=== PATIENT | male | born 1965 | race African-American/Black ===

== ENCOUNTER 2022-04-12 11:06 | Emergency (ER) | payer MEDICARE, OTHER ==
[2022-04-12 11:55] LABS: #Eosinphils 0.1 10x3/uL (0.0-0.5); #Monocytes 0.8 10x3/uL (0.0-1.1); #Neutrophils 5.9 10x3/uL (1.5-8.4); %Basophils 0.5 % (0.0-2.0); %Eosinophils 1.3 % (0.0-6.0); %Lymphocytes 16.9 % (18.0-47.0); %Monocytes 9.7 % (0.0-10.0); %Neutrophils 71.1 % (40.0-75.0); Hemoglobin 12.1 g/dL (13.5-17.5); Mean Corpuscular HGB CONC 31.1 g/dL (32.0-36.0); Mean Corpuscular Hemoglobin 28.7 pg (27.0-33.0); Mean Corpuscular Volume 92.4 fl (81.2-95.1); Mean Platelet Volume 11.6 fl (7.4-10.4); Platelet Count 226 10x3/uL (150-450); RBC Distribution Width 15.1 % (11.5-14.5); Red Blood Cell (RBC) Count 4.21 10x6/uL (4.32-5.72); White Blood Cell (WBC) Count 8.4 10x3/uL (3.5-10.5)
[2022-04-12 12:15] LABS: ALT (SGPT) 10 U/L (8-55); AST (SGOT) 24 U/L (5-34); Albumin 4.1 g/dL (3.5-5.0); Alkaline Phosphatase 132 U/L (40-110); Anion Gap 16 mmol/L (10-20); BUN (Urea Nitrogen) 18 mg/dL (8.4-25.7); Bilirubin, Total 0.5 mg/dL (0.2-1.2); Calc. Creatinine Clearance 0 mL/min (70-130); Calcium 9.6 mg/dL (7.8-10.44); Carbon Dioxide 19 mmol/L (22-29); Chloride 104 mmol/L (98-107); Estimated GFR 78; Globulin 4.7 g/dL (2.4-3.5); Glucose 153 mg/dL (70-105); Lipase 46 U/L (8-78); Potassium 4.8 mmol/L (3.5-5.1); Protein, Total 8.8 g/dL (6.0-8.3); Sodium 134 mmol/L (136-145)
[2022-04-12] MEDS ORDERED: Morphine 4 MG/ML VIAL ONE (12:27)
== END 2022-04-12 12:54 | disposition home or self-care (01) ==
LOC: CSHERS 11:06
DX: R07.9 Chest pain, unspecified (principal); I25.10 Atherosclerotic heart disease of native coronary artery without angina pectoris; I50.9 Heart failure, unspecified; E11.9 Type 2 diabetes mellitus without complications; K21.9 Gastro-esophageal reflux disease without esophagitis; F17.220 Nicotine dependence, chewing tobacco, uncomplicated; Z79.899 Other long term (current) drug therapy; Z79.82 Long term (current) use of aspirin; Z79.01 Long term (current) use of anticoagulants
CPT/HCPCS: 71045; 80053; 83690; 84484; 85025; 93005; 96374; J2270

== ENCOUNTER 2022-04-22 00:22 | Emergency (ER) | payer MEDICARE ==
[2022-04-22] MEDS ORDERED: HYDROcodone/Acetaminophen 5/325 mg Tablet ONE (01:14)
[2022-04-22 01:23] LABS: Bilirubin Neg (Negative); Blood, Urine Negative (Negative); Clarity Slightly Cloudy (Clear); Glucose, Urine (Dipstick) Normal (Negative); Ketone, Urine Negative (Negative); Leukocyte Negative (Negative); Nitrite Negative (Negative); Protein, Urine (Dipstick) Negative (Neg-Trace); Specific Gravity, Urine 1.025 (1.002-1.036); Urobilinogen Normal mg/dL (Less than 2)
[2022-04-22 02:10] LABS: #Basophils 0.1 10x3/uL (0.0-0.2); #Eosinphils 0.1 10x3/uL (0.0-0.5); #Neutrophils 5.5 10x3/uL (1.5-8.4); %Basophils 0.8 % (0.0-2.0); %Eosinophils 1.6 % (0.0-6.0); %Lymphocytes 22.6 % (18.0-47.0); %Monocytes 11.7 % (0.0-10.0); %Neutrophils 62.8 % (40.0-75.0); Hemoglobin 11.6 g/dL (13.5-17.5); Mean Corpuscular HGB CONC 32.5 g/dL (32.0-36.0); Mean Corpuscular Hemoglobin 28.9 pg (27.0-33.0); Mean Platelet Volume 11.1 fl (7.4-10.4); Platelet Count 184 10x3/uL (150-450); RBC Distribution Width 14.9 % (11.5-14.5); Red Blood Cell (RBC) Count 4.01 10x6/uL (4.32-5.72); White Blood Cell (WBC) Count 8.7 10x3/uL (3.5-10.5)
[2022-04-22 02:21] LABS: Anion Gap 13 mmol/L (10-20); BUN (Urea Nitrogen) 19 mg/dL (8.4-25.7); Calc. Creatinine Clearance 0 mL/min (70-130); Carbon Dioxide 17 mmol/L (22-29); Chloride 108 mmol/L (98-107); Estimated GFR 86; Potassium 4.3 mmol/L (3.5-5.1); Sodium 134 mmol/L (136-145)
[2022-04-22 02:22] LABS: ALT (SGPT) 11 U/L (8-55); AST (SGOT) 36 U/L (5-34); Albumin 3.9 g/dL (3.5-5.0); Alkaline Phosphatase 136 U/L (40-110); Bilirubin, Total 0.4 mg/dL (0.2-1.2); Calcium 9.4 mg/dL (7.8-10.44); Globulin 4.4 g/dL (2.4-3.5); Glucose 111 mg/dL (70-105); Lipase 40 U/L (8-78); Protein, Total 8.3 g/dL (6.0-8.3)
[2022-04-22] MEDS ORDERED: Morphine 4 MG/ML VIAL ONE ×2 (03:06→04:37)
[2022-04-22] MEDS ORDERED: Iopamidol 300 61% 100 ML VIAL FS ONE (12:49)
== END 2022-04-22 05:19 | disposition home or self-care (01) ==
LOC: CSHERS 00:22
DX: R10.9 Unspecified abdominal pain (principal); R10.814 Left lower quadrant abdominal tenderness; I25.10 Atherosclerotic heart disease of native coronary artery without angina pectoris; I11.0 Hypertensive heart disease with heart failure; I50.9 Heart failure, unspecified; E11.9 Type 2 diabetes mellitus without complications; K21.9 Gastro-esophageal reflux disease without esophagitis; E78.00 Pure hypercholesterolemia, unspecified; J44.9 Chronic obstructive pulmonary disease, unspecified; F17.220 Nicotine dependence, chewing tobacco, uncomplicated; Z79.82 Long term (current) use of aspirin; Z79.01 Long term (current) use of anticoagulants; Z79.899 Other long term (current) drug therapy
CPT/HCPCS: 36415; 74177; 80053; 81003; 83605; 83690; 85025; 96374; 96376; J2270; Q9967

== ENCOUNTER 2022-06-27 20:34 | Emergency (ER) | payer MEDICARE ==
[2022-06-27] MEDS ORDERED: Morphine 4 MG/ML VIAL ONE (21:11)
[2022-06-27] MEDS ORDERED: Morphine 2 MG/ML VIAL ONE (21:12)
[2022-06-27] MEDS ORDERED: Ondansetron ODT 4 MG TAB ONE (21:27)
== END 2022-06-27 22:42 | disposition home or self-care (01) ==
LOC: CSHERS 20:34
DX: R10.13 Epigastric pain (principal); R11.2 Nausea with vomiting, unspecified; E11.9 Type 2 diabetes mellitus without complications; I11.0 Hypertensive heart disease with heart failure; I50.9 Heart failure, unspecified; E78.00 Pure hypercholesterolemia, unspecified; F17.220 Nicotine dependence, chewing tobacco, uncomplicated; Z79.899 Other long term (current) drug therapy
CPT/HCPCS: 93005; 96374; 99284; J2270; Q0162

== ENCOUNTER 2022-09-17 15:14 | Emergency (ER) | payer MEDICARE | END 2022-09-17 16:41 | disposition home or self-care (01) | LOC: CSHERS 15:14 | DX: S30.1XXA Contusion of abdominal wall, initial encounter (principal); R10.11 Right upper quadrant pain; X58.XXXA Exposure to other specified factors, initial encounter | CPT/HCPCS: 74176 ==

== ENCOUNTER 2022-10-06 21:30 | Emergency (ER) | payer MEDICARE, OTHER ==
[~2022-10-06 21:30] MED LIST: Iopamidol 300 61% 100 ML VIAL FS ONE
[2022-10-06] MEDS ORDERED: Ondansetron PF 4 MG/2 ML Vial ONE (22:47)
[2022-10-06] MEDS ORDERED: Morphine 4 MG/ML VIAL ONE (22:47)
[2022-10-06 23:11] LABS: Hemoglobin 9.7 g/dL (13.5-17.5); Mean Corpuscular HGB CONC 31.6 g/dL (32.0-36.0); Mean Corpuscular Hemoglobin 30.9 pg (27.0-33.0); Mean Corpuscular Volume 97.8 fl (81.2-95.1); Mean Platelet Volume 11.4 fl (7.4-10.4); Platelet Count 137 10x3/uL (150-450); RBC Distribution Width 15.1 % (11.5-14.5); Red Blood Cell (RBC) Count 3.14 10x6/uL (4.32-5.72); White Blood Cell (WBC) Count 3.9 10x3/uL (3.5-10.5)
[2022-10-06 23:13] LABS: MDiff Complete? YES
[2022-10-06 23:22] LABS: ALT (SGPT) Less than 6 U/L (8-55); AST (SGOT) 15 U/L (5-34); Albumin 3.8 g/dL (3.5-5.0); Alkaline Phosphatase 91 U/L (40-110); Anion Gap 12 mmol/L (10-20); BUN (Urea Nitrogen) 17 mg/dL (8.4-25.7); Bilirubin, Total 0.7 mg/dL (0.2-1.2); Calc. Creatinine Clearance 0 mL/min (70-130); Calcium 8.9 mg/dL (7.8-10.44); Carbon Dioxide 19 mmol/L (22-29); Chloride 115 mmol/L (98-107); Estimated GFR 74; Globulin 3.2 g/dL (2.4-3.5); Glucose 104 mg/dL (70-105); Lipase 13 U/L (8-78); Potassium 3.2 mmol/L (3.5-5.1); Sodium 143 mmol/L (136-145)
[2022-10-06 23:37] LABS: Eosinophils 1 % (0-10); Lymphocytes 13 % (21-51); Metamyelocyte 1 % (0-0); Monocytes 9 % (0-10); Neutrophil 76 % (42-75)
[2022-10-06 23:38] LABS: Anisocytosis SLIGHT = 6-15 cells (100X) (0-5/hpf); Platelet Morphology Comment Appears Decreased
[2022-10-06 23:58] LABS: Bilirubin Neg (Negative); Blood, Urine Negative (Negative); Clarity Clear (Clear); Glucose, Urine (Dipstick) Normal (Negative); Ketone, Urine Negative (Negative); Leukocyte Negative (Negative); Nitrite Negative (Negative); Protein, Urine (Dipstick) 30 mg/dl (Neg-Trace); Specific Gravity, Urine 1.025 (1.005-1.030); Urobilinogen Normal mg/dL (Less than 2)
[2022-10-07 00:01] LABS: Bacteria/HPF None Seen HPF (None Seen); RBC/HPF 0-3 HPF (0-3); Squamous Epithelial 0-3 HPF (0-3); WBC/HPF 0-3 HPF (0-3)
== END 2022-10-07 00:32 | disposition home or self-care (01) ==
LOC: CSHERS 21:30
DX: R10.32 Left lower quadrant pain (principal); I11.0 Hypertensive heart disease with heart failure; I50.9 Heart failure, unspecified; J44.9 Chronic obstructive pulmonary disease, unspecified
CPT/HCPCS: 74177; 80053; 81003; 81015; 83605; 83690; 85025; 96374; 96375; J2270; J2405; Q9967

== ENCOUNTER 2022-10-10 16:54 | Emergency (ER) | payer MEDICARE, OTHER ==
[2022-10-10 19:00] LABS: Anion Gap 11 mmol/L (10-20); BUN (Urea Nitrogen) 15 mg/dL (8.4-25.7); Calc. Creatinine Clearance 0 mL/min (70-130); Calcium 8.9 mg/dL (7.8-10.44); Carbon Dioxide 21 mmol/L (22-29); Chloride 114 mmol/L (98-107); Estimated GFR 73; Glucose 78 mg/dL (70-105); Potassium 3.5 mmol/L (3.5-5.1); Sodium 142 mmol/L (136-145)
[2022-10-10] MEDS ORDERED: Morphine 4 MG/ML VIAL ONE (20:35)
== END 2022-10-10 20:37 | disposition home or self-care (01) ==
LOC: CSHERS 16:54
DX: M79.605 Pain in left leg (principal); M79.604 Pain in right leg; M71.22 Synovial cyst of popliteal space [Baker], left knee; M71.21 Synovial cyst of popliteal space [Baker], right knee; I11.0 Hypertensive heart disease with heart failure; I50.9 Heart failure, unspecified; J44.9 Chronic obstructive pulmonary disease, unspecified; F17.220 Nicotine dependence, chewing tobacco, uncomplicated; Z79.01 Long term (current) use of anticoagulants
CPT/HCPCS: 36415; 80048; 93970; 96374; J2270

== ENCOUNTER 2022-10-19 16:02 | Emergency (ER) | payer MEDICARE ==
[2022-10-19] MEDS ORDERED: Fentanyl 100 MCG/2 ML VIAL ONE (16:52)
[2022-10-19 17:14] LABS: Bilirubin Neg (Negative); Blood, Urine Negative (Negative); Clarity Clear (Clear); Glucose, Urine (Dipstick) Normal (Negative); Ketone, Urine Negative (Negative); Leukocyte Negative (Negative); Nitrite Negative (Negative); Protein, Urine (Dipstick) 100 mg/dl (Neg-Trace); Specific Gravity, Urine 1.025 (1.005-1.030); Urobilinogen Normal mg/dL (Less than 2)
[2022-10-19 17:21] LABS: RBC/HPF 0-3 HPF (0-3); WBC/HPF 0-3 HPF (0-3)
[2022-10-19 17:22] LABS: Bacteria/HPF Rare-Few HPF (None Seen); Mucous/LPF Rare LPF (<2+); Squamous Epithelial 0-3 HPF (0-3)
[2022-10-19 17:54] LABS: #Eosinphils 0.1 10x3/uL (0.0-0.5); #Monocytes 0.6 10x3/uL (0.0-1.1); #Neutrophils 2.5 10x3/uL (1.5-8.4); %Eosinophils 1.3 % (0.0-6.0); %Lymphocytes 17.6 % (18.0-47.0); %Monocytes 14.5 % (0.0-10.0); %Neutrophils 65.1 % (40.0-75.0); Hemoglobin 10.5 g/dL (13.5-17.5); Mean Corpuscular Hemoglobin 30.5 pg (27.0-33.0); Mean Corpuscular Volume 98.5 fl (81.2-95.1); Mean Platelet Volume 12.1 fl (7.4-10.4); Platelet Count 114 10x3/uL (150-450); RBC Distribution Width 14.6 % (11.5-14.5); Red Blood Cell (RBC) Count 3.44 10x6/uL (4.32-5.72); White Blood Cell (WBC) Count 3.9 10x3/uL (3.5-10.5)
[2022-10-19 18:09] LABS: ALT (SGPT) 6 U/L (8-55); AST (SGOT) 19 U/L (5-34); Alkaline Phosphatase 95 U/L (40-110); Anion Gap 13 mmol/L (10-20); BUN (Urea Nitrogen) 20 mg/dL (8.4-25.7); Bilirubin, Total 1.1 mg/dL (0.2-1.2); Calc. Creatinine Clearance 0 mL/min (70-130); Calcium 8.7 mg/dL (7.8-10.44); Carbon Dioxide 18 mmol/L (22-29); Chloride 110 mmol/L (98-107); Estimated GFR 73; Globulin 3.1 g/dL (2.4-3.5); Glucose 102 mg/dL (70-105); Lipase 17 U/L (8-78); Potassium 3.3 mmol/L (3.5-5.1); Protein, Total 7.1 g/dL (6.0-8.3); Sodium 138 mmol/L (136-145)
== END 2022-10-19 18:52 | disposition home or self-care (01) ==
LOC: CSHERS 16:02
DX: R10.812 Left upper quadrant abdominal tenderness (principal); I11.0 Hypertensive heart disease with heart failure; I50.9 Heart failure, unspecified; J44.9 Chronic obstructive pulmonary disease, unspecified; F17.220 Nicotine dependence, chewing tobacco, uncomplicated; Z79.01 Long term (current) use of anticoagulants; Z79.82 Long term (current) use of aspirin
CPT/HCPCS: 80053; 81003; 81015; 83690; 85025; 96372; 99284; J3010

== ENCOUNTER 2022-10-25 11:37 | Emergency (ER) | payer MEDICARE ==
[2022-10-25 12:32] LABS: #Eosinphils 0.1 10x3/uL (0.0-0.5); #Monocytes 0.5 10x3/uL (0.0-1.1); #Neutrophils 2.4 10x3/uL (1.5-8.4); %Basophils 0.8 % (0.0-2.0); %Eosinophils 1.4 % (0.0-6.0); %Lymphocytes 17.2 % (18.0-47.0); %Monocytes 13.9 % (0.0-10.0); %Neutrophils 66.4 % (40.0-75.0); Hemoglobin 10.6 g/dL (13.5-17.5); Mean Corpuscular HGB CONC 31.5 g/dL (32.0-36.0); Mean Corpuscular Volume 98.2 fl (81.2-95.1); Mean Platelet Volume 12.1 fl (7.4-10.4); Platelet Count 110 10x3/uL (150-450); RBC Distribution Width 14.6 % (11.5-14.5); Red Blood Cell (RBC) Count 3.42 10x6/uL (4.32-5.72); White Blood Cell (WBC) Count 3.6 10x3/uL (3.5-10.5)
[2022-10-25 12:36] LABS: ALT (SGPT) Less than 6 U/L (8-55); AST (SGOT) 18 U/L (5-34); Alkaline Phosphatase 98 U/L (40-110); Anion Gap 12 mmol/L (10-20); BUN (Urea Nitrogen) 21 mg/dL (8.4-25.7); Bilirubin, Total 0.8 mg/dL (0.2-1.2); Calc. Creatinine Clearance 0 mL/min (70-130); Carbon Dioxide 19 mmol/L (22-29); Chloride 113 mmol/L (98-107); Estimated GFR 74; Globulin 3.4 g/dL (2.4-3.5); Glucose 118 mg/dL (70-105); Lipase 19 U/L (8-78); Potassium 3.4 mmol/L (3.5-5.1); Protein, Total 7.4 g/dL (6.0-8.3); Sodium 141 mmol/L (136-145)
[2022-10-25 12:40] LABS: Bilirubin Neg (Negative); Blood, Urine Negative (Negative); Clarity Clear (Clear); Glucose, Urine (Dipstick) Normal (Negative); Ketone, Urine Negative (Negative); Leukocyte 25 (Negative); Nitrite Negative (Negative); Protein, Urine (Dipstick) 30 mg/dl (Neg-Trace); Urobilinogen Normal mg/dL (Less than 2)
[2022-10-25 13:03] LABS: Bacteria/HPF None Seen HPF (None Seen); Calcium Oxalate Crystals 1+ HPF (None Seen); RBC/HPF 0-3 HPF (0-3); Squamous Epithelial 0-3 HPF (0-3); WBC/HPF 0-3 HPF (0-3)
[2022-10-25] MEDS ORDERED: HYDROmorphone 2 MG TAB ONE (13:06)
[2022-10-25] MEDS ORDERED: Ondansetron PF 4 MG/2 ML Vial ONE (14:17)
[2022-10-25] MEDS ORDERED: Morphine 4 MG/ML VIAL ONE (14:17)
== END 2022-10-25 14:32 | disposition home or self-care (01) ==
LOC: CSHERS 11:37
DX: R10.12 Left upper quadrant pain (principal); I11.0 Hypertensive heart disease with heart failure; I50.9 Heart failure, unspecified; J44.9 Chronic obstructive pulmonary disease, unspecified; F17.220 Nicotine dependence, chewing tobacco, uncomplicated
CPT/HCPCS: 71045; 80053; 81003; 81015; 83690; 85025; 96374; 96375; J2270; J2405

== ENCOUNTER 2022-11-10 09:58 | Emergency (ER) | payer MEDICARE ==
[2022-11-10 10:56] LABS: #Basophils 0.1 10x3/uL (0.0-0.2); #Eosinphils 0.1 10x3/uL (0.0-0.5); #Monocytes 0.5 10x3/uL (0.0-1.1); #Neutrophils 3.9 10x3/uL (1.5-8.4); %Basophils 1.4 % (0.0-2.0); %Eosinophils 1.6 % (0.0-6.0); %Lymphocytes 18.9 % (18.0-47.0); %Neutrophils 68.1 % (40.0-75.0); Hemoglobin 13.8 g/dL (13.5-17.5); Mean Corpuscular HGB CONC 30.5 g/dL (32.0-36.0); Mean Corpuscular Hemoglobin 29.2 pg (27.0-33.0); Mean Corpuscular Volume 95.6 fl (81.2-95.1); Mean Platelet Volume 10.1 fl (7.4-10.4); Platelet Count 220 10x3/uL (150-450); RBC Distribution Width 14.1 % (11.5-14.5); Red Blood Cell (RBC) Count 4.73 10x6/uL (4.32-5.72); White Blood Cell (WBC) Count 5.8 10x3/uL (3.5-10.5)
[2022-11-10 11:04] LABS: ALT (SGPT) 14 U/L (8-55); AST (SGOT) 47 U/L (5-34); Albumin 4.5 g/dL (3.5-5.0); Alkaline Phosphatase 153 U/L (40-110); Anion Gap 14 mmol/L (10-20); BUN (Urea Nitrogen) 31 mg/dL (8.4-25.7); Bilirubin, Total 0.8 mg/dL (0.2-1.2); Calc. Creatinine Clearance 0 mL/min (70-130); Calcium 9.5 mg/dL (7.8-10.44); Carbon Dioxide 17 mmol/L (22-29); Chloride 112 mmol/L (98-107); Estimated GFR 56; Globulin 4.1 g/dL (2.4-3.5); Glucose 153 mg/dL (70-105); Lipase 49 U/L (8-78); Potassium 4.5 mmol/L (3.5-5.1); Protein, Total 8.6 g/dL (6.0-8.3); Sodium 138 mmol/L (136-145)
[2022-11-10] MEDS ORDERED: Ondansetron PF 4 MG/2 ML Vial ONE ×2 (11:11→13:37)
[2022-11-10] MEDS ORDERED: Morphine 4 MG/ML VIAL ONE ×2 (11:11→13:37)
== END 2022-11-10 13:47 | disposition home or self-care (01) ==
LOC: CSHERS 09:58
DX: R07.9 Chest pain, unspecified (principal); G89.29 Other chronic pain; I11.0 Hypertensive heart disease with heart failure; I50.9 Heart failure, unspecified; J44.9 Chronic obstructive pulmonary disease, unspecified; F17.220 Nicotine dependence, chewing tobacco, uncomplicated
CPT/HCPCS: 36415; 71045; 80053; 83690; 84484; 85025; 93005; 94760; 96374; 96375; 96376; J2270; J2405

== ENCOUNTER 2022-11-14 13:30 | Emergency (ER) | payer MEDICARE ==
[2022-11-14 14:24] LABS: #Basophils 0.1 10x3/uL (0.0-0.2); #Eosinphils 0.1 10x3/uL (0.0-0.5); #Monocytes 0.8 10x3/uL (0.0-1.1); #Neutrophils 3.3 10x3/uL (1.5-8.4); %Basophils 1.8 % (0.0-2.0); %Eosinophils 1.3 % (0.0-6.0); %Lymphocytes 27.2 % (18.0-47.0); %Monocytes 13.4 % (0.0-10.0); Hemoglobin 14.7 g/dL (13.5-17.5); Mean Corpuscular HGB CONC 30.9 g/dL (32.0-36.0); Mean Corpuscular Hemoglobin 29.3 pg (27.0-33.0); Mean Corpuscular Volume 94.8 fl (81.2-95.1); Mean Platelet Volume 11.5 fl (7.4-10.4); Platelet Count 195 10x3/uL (150-450); RBC Distribution Width 14.1 % (11.5-14.5); Red Blood Cell (RBC) Count 5.02 10x6/uL (4.32-5.72)
[2022-11-14 15:03] LABS: ALT (SGPT) 18 U/L (8-55); AST (SGOT) 51 U/L (5-34); Albumin 4.6 g/dL (3.5-5.0); Alkaline Phosphatase 147 U/L (40-110); Anion Gap 16 mmol/L (10-20); BUN (Urea Nitrogen) 28 mg/dL (8.4-25.7); Bilirubin, Total 0.7 mg/dL (0.2-1.2); Calc. Creatinine Clearance 0 mL/min (70-130); Calcium 9.8 mg/dL (7.8-10.44); Carbon Dioxide 16 mmol/L (22-29); Estimated GFR 58; Globulin 4.1 g/dL (2.4-3.5); Glucose 102 mg/dL (70-105); Lipase 44 U/L (8-78); Potassium 4.5 mmol/L (3.5-5.1); Protein, Total 8.7 g/dL (6.0-8.3); Sodium 138 mmol/L (136-145)
[2022-11-14] MEDS ORDERED: Ondansetron PF 4 MG/2 ML Vial ONE (15:04)
[2022-11-14] MEDS ORDERED: HYDROcodone/Acetaminophen 5/325 mg Tablet ONE (15:04)
[2022-11-14 15:13] LABS: Chloride 111 mmol/L (98-107)
[2022-11-14] MEDS ORDERED: Morphine 2 MG/ML VIAL ONE (18:00)
== END 2022-11-14 18:12 | disposition home or self-care (01) ==
LOC: CSHERS 13:30
DX: R07.9 Chest pain, unspecified (principal); G89.29 Other chronic pain; I11.0 Hypertensive heart disease with heart failure; I50.9 Heart failure, unspecified; J44.9 Chronic obstructive pulmonary disease, unspecified; F17.220 Nicotine dependence, chewing tobacco, uncomplicated
CPT/HCPCS: 71045; 80053; 83690; 84484; 85025; 93005; 96372; 96374; J2272; J2405

== ENCOUNTER 2022-11-21 13:50 | Emergency (ER) | payer MEDICARE ==
[2022-11-21 14:43] LABS: Hemoglobin 14.8 g/dL (13.5-17.5); Mean Corpuscular HGB CONC 31.6 g/dL (32.0-36.0); Mean Corpuscular Hemoglobin 29.7 pg (27.0-33.0); Mean Corpuscular Volume 93.8 fl (81.2-95.1); Mean Platelet Volume 12.8 fl (7.4-10.4); Platelet Count 196 10x3/uL (150-450); RBC Distribution Width 14.3 % (11.5-14.5); Red Blood Cell (RBC) Count 4.99 10x6/uL (4.32-5.72); White Blood Cell (WBC) Count 7.2 10x3/uL (3.5-10.5)
[2022-11-21] MEDS ORDERED: Ondansetron PF 4 MG/2 ML Vial ONE ×2 (14:49→16:01)
[2022-11-21] MEDS ORDERED: Morphine 4 MG/ML VIAL ONE ×2 (14:49→16:01)
[2022-11-21 14:51] LABS: ALT (SGPT) 22 U/L (8-55); AST (SGOT) 52 U/L (5-34); Albumin 4.3 g/dL (3.5-5.0); Alkaline Phosphatase 142 U/L (40-110); Anion Gap 16 mmol/L (10-20); BUN (Urea Nitrogen) 31 mg/dL (8.4-25.7); Bilirubin, Total 0.5 mg/dL (0.2-1.2); Calc. Creatinine Clearance 0 mL/min (70-130); Calcium 9.6 mg/dL (7.8-10.44); Carbon Dioxide 13 mmol/L (22-29); Chloride 113 mmol/L (98-107); Estimated GFR 46; Globulin 4.1 g/dL (2.4-3.5); Glucose 74 mg/dL (70-105); Protein, Total 8.4 g/dL (6.0-8.3); Sodium 137 mmol/L (136-145)
[2022-11-21 14:59] LABS: #Basophils 0.1 10x3/uL (0.0-0.2); #Eosinphils 0.1 10x3/uL (0.0-0.5); #Neutrophils 4.2 10x3/uL (1.5-8.4); %Eosinophils 1.1 % (0.0-6.0); %Lymphocytes 23.3 % (18.0-47.0); %Monocytes 14.6 % (0.0-10.0); %Neutrophils 59.6 % (40.0-75.0)
[2022-11-21 15:04] LABS: Eosinophils 1 % (0-10); Lymphocytes 31 % (21-51); Monocytes 9 % (0-10)
[2022-11-21 15:05] LABS: MDiff Complete? YES; Manual Diff?? YES; Neutrophil 59 % (42-75)
[2022-11-21 15:06] LABS: Platelet Morphology Comment Appears Adequate; RBC Morphology Normal
== END 2022-11-21 16:05 | disposition home or self-care (01) ==
LOC: CSHERS 13:50
DX: R07.9 Chest pain, unspecified (principal); I11.0 Hypertensive heart disease with heart failure; I50.9 Heart failure, unspecified; J44.9 Chronic obstructive pulmonary disease, unspecified; F17.220 Nicotine dependence, chewing tobacco, uncomplicated
CPT/HCPCS: 71045; 80053; 84484; 85025; 93005; 96374; 96375; 96376; J2270; J2405

== ENCOUNTER 2022-11-28 10:57 | Emergency (ER) | payer MEDICARE ==
[2022-11-28] MEDS ORDERED: Fentanyl 100 MCG/2 ML VIAL ONE (11:50)
== END 2022-11-28 12:47 | disposition home or self-care (01) ==
LOC: CSHERS 10:57
DX: S46.912A Strain of unspecified muscle, fascia and tendon at shoulder and upper arm level, left arm, initial encounter (principal); S30.0XXA Contusion of lower back and pelvis, initial encounter; I11.0 Hypertensive heart disease with heart failure; I50.9 Heart failure, unspecified; J44.9 Chronic obstructive pulmonary disease, unspecified; F17.220 Nicotine dependence, chewing tobacco, uncomplicated; W18.30XA Fall on same level, unspecified, initial encounter; Z79.01 Long term (current) use of anticoagulants; Z79.82 Long term (current) use of aspirin; Z79.899 Other long term (current) drug therapy
CPT/HCPCS: 72131; 96372; J3010

== ENCOUNTER 2022-12-01 17:51 | Emergency (ER) | payer MEDICARE ==
[2022-12-01 19:17] LABS: #Eosinphils 0.2 10x3/uL (0.0-0.5); #Monocytes 0.6 10x3/uL (0.0-1.1); #Neutrophils 4.4 10x3/uL (1.5-8.4); %Basophils 0.6 % (0.0-2.0); %Eosinophils 2.3 % (0.0-6.0); %Lymphocytes 19.8 % (18.0-47.0); %Monocytes 9.2 % (0.0-10.0); %Neutrophils 67.2 % (40.0-75.0); Hemoglobin 14.2 g/dL (13.5-17.5); Mean Corpuscular HGB CONC 32.5 g/dL (32.0-36.0); Mean Corpuscular Hemoglobin 29.5 pg (27.0-33.0); Mean Corpuscular Volume 90.9 fl (81.2-95.1); Mean Platelet Volume 12.3 fl (7.4-10.4); Platelet Count 144 10x3/uL (150-450); RBC Distribution Width 14.2 % (11.5-14.5); Red Blood Cell (RBC) Count 4.81 10x6/uL (4.32-5.72); White Blood Cell (WBC) Count 6.5 10x3/uL (3.5-10.5)
[2022-12-01 19:38] LABS: ALT (SGPT) 24 U/L (8-55); AST (SGOT) 42 U/L (5-34); Albumin 4.2 g/dL (3.5-5.0); Alkaline Phosphatase 125 U/L (40-110); Anion Gap 14 mmol/L (10-20); BUN (Urea Nitrogen) 25 mg/dL (8.4-25.7); Bilirubin, Total 0.7 mg/dL (0.2-1.2); CK (CPK) 165 U/L (30-200); Calc. Creatinine Clearance 0 mL/min (70-130); Calcium 9.4 mg/dL (7.8-10.44); Carbon Dioxide 18 mmol/L (22-29); Chloride 111 mmol/L (98-107); Estimated GFR 59; Globulin 3.6 g/dL (2.4-3.5); Glucose 86 mg/dL (70-105); Lipase 42 U/L (8-78); Protein, Total 7.8 g/dL (6.0-8.3); Sodium 139 mmol/L (136-145)
[2022-12-01] MEDS ORDERED: Ondansetron PF 4 MG/2 ML Vial ONE (19:56)
[2022-12-01] MEDS ORDERED: Morphine 4 MG/ML VIAL ONE (19:56)
[2022-12-01 20:02] LABS: CKMB 4.8 ng/mL (0-6.6)
[2022-12-01 20:39] LABS: Bilirubin Neg (Negative); Blood, Urine Negative (Negative); Clarity Clear (Clear); Glucose, Urine (Dipstick) Normal (Negative); Ketone, Urine Negative (Negative); Leukocyte Negative (Negative); Nitrite Negative (Negative); Protein, Urine (Dipstick) 15 mg/dl (Neg-Trace); Specific Gravity, Urine 1.025 (1.005-1.030); Urobilinogen Normal mg/dL (Less than 2)
== END 2022-12-01 22:01 | disposition home or self-care (01) ==
LOC: CSHERS 17:51
DX: R10.9 Unspecified abdominal pain (principal); I11.0 Hypertensive heart disease with heart failure; I50.9 Heart failure, unspecified; J44.9 Chronic obstructive pulmonary disease, unspecified; F17.220 Nicotine dependence, chewing tobacco, uncomplicated; Z20.822 Contact with and (suspected) exposure to COVID-19
CPT/HCPCS: 36415; 71045; 74177; 80053; 81003; 82550; 82553; 83605; 83690; 84484; 85025; 93005; 96374; 96375; J2270; J2405

== ENCOUNTER 2022-12-12 14:53 | Emergency (ER) | payer MEDICARE ==
[2022-12-12] MEDS ORDERED: Morphine 4 MG/ML VIAL ONE (16:09)
[2022-12-12] MEDS ORDERED: Ondansetron PF 4 MG/2 ML Vial ONE (16:09)
[2022-12-12 16:25] LABS: #Eosinphils 0.1 10x3/uL (0.0-0.5); #Monocytes 0.6 10x3/uL (0.0-1.1); #Neutrophils 2.8 10x3/uL (1.5-8.4); %Basophils 0.8 % (0.0-2.0); %Eosinophils 2.9 % (0.0-6.0); %Lymphocytes 26.7 % (18.0-47.0); %Monocytes 11.6 % (0.0-10.0); %Neutrophils 57.2 % (40.0-75.0); Hemoglobin 12.9 g/dL (13.5-17.5); Mean Corpuscular HGB CONC 31.5 g/dL (32.0-36.0); Mean Corpuscular Hemoglobin 29.7 pg (27.0-33.0); Mean Corpuscular Volume 94.5 fl (81.2-95.1); Mean Platelet Volume 12.3 fl (7.4-10.4); Platelet Count 123 10x3/uL (150-450); RBC Distribution Width 14.8 % (11.5-14.5); Red Blood Cell (RBC) Count 4.34 10x6/uL (4.32-5.72); White Blood Cell (WBC) Count 4.9 10x3/uL (3.5-10.5)
[2022-12-12 16:38] LABS: ALT (SGPT) 37 U/L (8-55); AST (SGOT) 64 U/L (5-34); Alkaline Phosphatase 135 U/L (40-110); Anion Gap 15 mmol/L (10-20); BUN (Urea Nitrogen) 15 mg/dL (8.4-25.7); Bilirubin, Total 0.5 mg/dL (0.2-1.2); Calc. Creatinine Clearance 0 mL/min (70-130); Calcium 8.9 mg/dL (7.8-10.44); Carbon Dioxide 17 mmol/L (22-29); Chloride 113 mmol/L (98-107); Estimated GFR 70; Globulin 3.3 g/dL (2.4-3.5); Glucose 82 mg/dL (70-105); Lipase 44 U/L (8-78); Potassium 3.9 mmol/L (3.5-5.1); Protein, Total 7.3 g/dL (6.0-8.3); Sodium 141 mmol/L (136-145)
[2022-12-12 17:02] LABS: CKMB 3.8 ng/mL (0-6.6)
== END 2022-12-12 17:25 | disposition home or self-care (01) ==
LOC: CSHERS 14:53
DX: R10.12 Left upper quadrant pain (principal); I11.0 Hypertensive heart disease with heart failure; I50.9 Heart failure, unspecified; J44.9 Chronic obstructive pulmonary disease, unspecified; F17.220 Nicotine dependence, chewing tobacco, uncomplicated
CPT/HCPCS: 71045; 80053; 82553; 83690; 84484; 85025; 93005; 96374; 96375; J2270; J2405

== ENCOUNTER 2022-12-18 16:02 | Emergency (ER) | payer MEDICARE ==
[2022-12-18 17:04] LABS: #Basophils 0.1 10x3/uL (0.0-0.2); #Eosinphils 0.1 10x3/uL (0.0-0.5); #Monocytes 0.7 10x3/uL (0.0-1.1); #Neutrophils 3.4 10x3/uL (1.5-8.4); %Basophils 0.9 % (0.0-2.0); %Eosinophils 1.9 % (0.0-6.0); %Lymphocytes 22.7 % (18.0-47.0); %Monocytes 12.3 % (0.0-10.0); %Neutrophils 60.4 % (40.0-75.0); Hemoglobin 11.9 g/dL (13.5-17.5); Mean Corpuscular HGB CONC 31.4 g/dL (32.0-36.0); Mean Corpuscular Hemoglobin 29.5 pg (27.0-33.0); Mean Platelet Volume 12.2 fl (7.4-10.4); Platelet Count 132 10x3/uL (150-450); RBC Distribution Width 15.1 % (11.5-14.5); Red Blood Cell (RBC) Count 4.03 10x6/uL (4.32-5.72); White Blood Cell (WBC) Count 5.7 10x3/uL (3.5-10.5)
[2022-12-18 17:14] LABS: ALT (SGPT) 25 U/L (8-55); AST (SGOT) 52 U/L (5-34); Albumin 3.8 g/dL (3.5-5.0); Alkaline Phosphatase 131 U/L (40-110); Anion Gap 12 mmol/L (10-20); BUN (Urea Nitrogen) 17 mg/dL (8.4-25.7); Bilirubin, Total 0.5 mg/dL (0.2-1.2); Calc. Creatinine Clearance 0 mL/min (70-130); Calcium 8.8 mg/dL (7.8-10.44); Carbon Dioxide 19 mmol/L (22-29); Chloride 112 mmol/L (98-107); Estimated GFR 75; Globulin 3.2 g/dL (2.4-3.5); Glucose 92 mg/dL (70-105); Lipase 28 U/L (8-78); Potassium 3.5 mmol/L (3.5-5.1); Sodium 139 mmol/L (136-145)
== END 2022-12-18 17:30 | disposition left against medical advice (07) ==
LOC: CSHERS 16:02
DX: R07.9 Chest pain, unspecified (principal); I11.0 Hypertensive heart disease with heart failure; I50.9 Heart failure, unspecified; J44.9 Chronic obstructive pulmonary disease, unspecified; F17.220 Nicotine dependence, chewing tobacco, uncomplicated
CPT/HCPCS: 36415; 71045; 80053; 83690; 84484; 85025; 93005

== ENCOUNTER 2022-12-29 11:39 | Emergency (ER) | payer MEDICARE ==
[2022-12-29] MEDS ORDERED: Acetaminophen 500 MG TAB ONE (12:27)
[2022-12-29 12:34] LABS: Bilirubin Neg (Negative); Blood, Urine Negative (Negative); Clarity Clear (Clear); Glucose, Urine (Dipstick) Normal (Negative); Ketone, Urine Negative (Negative); Leukocyte Negative (Negative); Nitrite Negative (Negative); Protein, Urine (Dipstick) 15 mg/dl (Neg-Trace); Specific Gravity, Urine 1.025 (1.005-1.030); Urobilinogen Normal mg/dL (Less than 2)
== END 2022-12-29 14:21 | disposition home or self-care (01) ==
LOC: CSHERS 11:39
DX: M17.11 Unilateral primary osteoarthritis, right knee (principal); N50.811 Right testicular pain; N50.812 Left testicular pain; I11.0 Hypertensive heart disease with heart failure; I50.9 Heart failure, unspecified; E87.6 Hypokalemia; J44.9 Chronic obstructive pulmonary disease, unspecified; F17.220 Nicotine dependence, chewing tobacco, uncomplicated
CPT/HCPCS: 76870; 81003; 93976

== ENCOUNTER 2023-02-25 15:54 | Emergency (ER) | payer MEDICARE ==
[2023-02-25 16:24] LABS: #Eosinphils 0.1 10x3/uL (0.0-0.5); #Monocytes 0.7 10x3/uL (0.0-1.1); #Neutrophils 4.3 10x3/uL (1.5-8.4); %Basophils 0.6 % (0.0-2.0); %Eosinophils 1.3 % (0.0-6.0); %Lymphocytes 17.5 % (18.0-47.0); %Monocytes 11.3 % (0.0-10.0); %Neutrophils 68.5 % (40.0-75.0); Hemoglobin 11.3 g/dL (13.5-17.5); Mean Corpuscular HGB CONC 31.6 g/dL (32.0-36.0); Mean Corpuscular Hemoglobin 31.4 pg (27.0-33.0); Mean Corpuscular Volume 99.4 fl (81.2-95.1); Mean Platelet Volume 10.6 fl (7.4-10.4); Platelet Count 150 10x3/uL (150-450); RBC Distribution Width 16.2 % (11.5-14.5); White Blood Cell (WBC) Count 6.3 10x3/uL (3.5-10.5)
[2023-02-25 16:42] LABS: ALT (SGPT) 6 U/L (8-55); AST (SGOT) 24 U/L (5-34); Albumin 4.1 g/dL (3.5-5.0); Alkaline Phosphatase 109 U/L (40-110); Anion Gap 14 mmol/L (10-20); BUN (Urea Nitrogen) 14 mg/dL (8.4-25.7); Bilirubin, Total 0.6 mg/dL (0.2-1.2); Calc. Creatinine Clearance 0 mL/min (70-130); Calcium 9.5 mg/dL (7.8-10.44); Carbon Dioxide 20 mmol/L (22-29); Chloride 110 mmol/L (98-107); Estimated GFR 64; Globulin 3.4 g/dL (2.4-3.5); Glucose 107 mg/dL (70-105); Protein, Total 7.5 g/dL (6.0-8.3); Sodium 140 mmol/L (136-145)
[2023-02-25] MEDS ORDERED: Mag-Al Plus 1200 MG/1200 MG/120 MG/30 ML UDCUP ONE (17:12)
[2023-02-25] MEDS ORDERED: Lidocaine 2% Viscous Solution 10 ML, Aluminum & Magnesium Hydroxide 30 ML SSW SCH (17:30)
[2023-02-25] MEDS ORDERED: Morphine 4 MG/ML VIAL ONE (17:45)
[2023-02-25] MEDS ORDERED: Ondansetron ODT 4 MG TAB ONE (17:46)
[2023-02-25 17:53] LABS: Bilirubin Neg (Negative); Blood, Urine Negative (Negative); Clarity Clear (Clear); Glucose, Urine (Dipstick) Normal (Negative); Ketone, Urine Negative (Negative); Leukocyte 25 (Negative); Nitrite Negative (Negative); Protein, Urine (Dipstick) Negative (Neg-Trace); Specific Gravity, Urine 1.025 (1.005-1.030); Urobilinogen Normal mg/dL (Less than 2)
[2023-02-25 18:08] LABS: Bacteria/HPF 1+ HPF (None Seen); CAUTI Indications for Culture Dysuria,urgency,freq; RBC/HPF 0-3 HPF (0-3); Squamous Epithelial None Seen HPF (0-3); WBC/HPF 21-50 HPF (0-3)
[2023-02-25 18:10] LABS: Urine Culture Reflex Yes Yes
== END 2023-02-25 18:40 | disposition home or self-care (01) ==
LOC: CSHERS 15:54
DX: N39.0 Urinary tract infection, site not specified (principal); I11.0 Hypertensive heart disease with heart failure; I50.9 Heart failure, unspecified; F17.220 Nicotine dependence, chewing tobacco, uncomplicated
CPT/HCPCS: 36415; 71045; 80053; 81001; 83690; 84484; 85025; 87077; 87086; 87186; 93005; 96372; J2270; Q0162

== ENCOUNTER 2023-03-07 18:22 | Emergency (ER) | payer MEDICAID, MEDICARE ==
[2023-03-07] MEDS ORDERED: HYDROmorphone 0.5 MG/0.5 ML SYRINGE ONE (19:50)
[2023-03-07 20:24] LABS: #Eosinphils 0.1 10x3/uL (0.0-0.5); #Monocytes 0.8 10x3/uL (0.0-1.1); #Neutrophils 3.6 10x3/uL (1.5-8.4); %Basophils 0.7 % (0.0-2.0); %Eosinophils 0.9 % (0.0-6.0); %Lymphocytes 20.6 % (18.0-47.0); %Monocytes 13.2 % (0.0-10.0); %Neutrophils 63.9 % (40.0-75.0); Hemoglobin 12.1 g/dL (13.5-17.5); Mean Corpuscular HGB CONC 32.2 g/dL (32.0-36.0); Mean Corpuscular Hemoglobin 31.7 pg (27.0-33.0); Mean Corpuscular Volume 98.4 fl (81.2-95.1); Mean Platelet Volume 10.5 fl (7.4-10.4); Platelet Count 136 10x3/uL (150-450); RBC Distribution Width 15.6 % (11.5-14.5); Red Blood Cell (RBC) Count 3.79 10x6/uL (4.32-5.72); White Blood Cell (WBC) Count 5.7 10x3/uL (3.5-10.5)
[2023-03-07 20:29] LABS: ALT (SGPT) 7 U/L (8-55); AST (SGOT) 30 U/L (5-34); Alkaline Phosphatase 93 U/L (40-110); Anion Gap 15 mmol/L (10-20); BUN (Urea Nitrogen) 15 mg/dL (8.4-25.7); Bilirubin, Total 0.7 mg/dL (0.2-1.2); Calc. Creatinine Clearance 0 mL/min (70-130); Calcium 8.7 mg/dL (7.8-10.44); Carbon Dioxide 16 mmol/L (22-29); Chloride 110 mmol/L (98-107); Estimated GFR 75; Globulin 3.8 g/dL (2.4-3.5); Glucose 90 mg/dL (70-105); Potassium 3.5 mmol/L (3.5-5.1); Protein, Total 7.8 g/dL (6.0-8.3); Sodium 137 mmol/L (136-145)
[2023-03-07 20:52] LABS: CKMB 2.8 ng/mL (0-6.6)
== END 2023-03-07 21:23 | disposition home or self-care (01) ==
LOC: CSHERS 18:22
DX: R07.89 Other chest pain (principal); I11.0 Hypertensive heart disease with heart failure; I50.9 Heart failure, unspecified; J44.9 Chronic obstructive pulmonary disease, unspecified; F17.220 Nicotine dependence, chewing tobacco, uncomplicated
CPT/HCPCS: 71045; 80053; 82553; 84484; 85025; 93005; 96374; J1170

== ENCOUNTER 2023-04-15 18:52 | Emergency (ER) | payer MEDICARE, OTHER ==
[2023-04-15] MEDS ORDERED: Morphine 4 MG/ML VIAL ONE (19:48)
[2023-04-15] MEDS ORDERED: Ondansetron PF 4 MG/2 ML Vial ONE (19:48)
[2023-04-15 20:10] LABS: #Eosinphils 0.1 10x3/uL (0.0-0.5); #Monocytes 0.6 10x3/uL (0.0-1.1); #Neutrophils 2.8 10x3/uL (1.5-8.4); %Basophils 0.8 % (0.0-2.0); %Eosinophils 2.3 % (0.0-6.0); %Lymphocytes 26.5 % (18.0-47.0); %Monocytes 11.7 % (0.0-10.0); %Neutrophils 57.9 % (40.0-75.0); Mean Corpuscular HGB CONC 32.8 g/dL (32.0-36.0); Mean Corpuscular Hemoglobin 31.6 pg (27.0-33.0); Mean Corpuscular Volume 96.1 fl (81.2-95.1); Mean Platelet Volume 11.6 fl (7.4-10.4); Platelet Count 137 10x3/uL (150-450); RBC Distribution Width 13.3 % (11.5-14.5); Red Blood Cell (RBC) Count 4.12 10x6/uL (4.32-5.72); White Blood Cell (WBC) Count 4.8 10x3/uL (3.5-10.5)
[2023-04-15 20:22] LABS: ALT (SGPT) 13 U/L (8-55); AST (SGOT) 36 U/L (5-34); Alkaline Phosphatase 77 U/L (40-110); Anion Gap 14 mmol/L (10-20); BUN (Urea Nitrogen) 15 mg/dL (8.4-25.7); Bilirubin, Total 0.5 mg/dL (0.2-1.2); Calc. Creatinine Clearance 0 mL/min (70-130); Calcium 9.3 mg/dL (7.8-10.44); Carbon Dioxide 20 mmol/L (22-29); Chloride 105 mmol/L (98-107); Estimated GFR 60; Globulin 3.3 g/dL (2.4-3.5); Glucose 131 mg/dL (70-105); Lipase 65 U/L (8-78); Magnesium 1.4 mg/dL (1.6-2.6); Protein, Total 7.3 g/dL (6.0-8.3); Sodium 135 mmol/L (136-145)
[2023-04-15 20:27] LABS: INR-International Normal Ratio 4.3; PTT 46.9 sec (22.0-33.0); Prothrombin Time 45.3 sec (9.5-12.1)
[2023-04-15] MEDS ORDERED: Magnesium 2 GM/50 ML BAG (IN WATER) ONE (20:47)
[2023-04-15 20:52] LABS: Actual Bicarbonate (HCO3a) 18.9 mEq/L (22-28); Base Excess (BEa) -6.4 mEq/L (-2.0 to +3.0); Calcium, Ionized (arterial) 1.24 mmol/L (1.12-1.30); Carboxyhemoglobin (COHb) 0.3 gm% (0.0-3.0); Critical Notified By: CP.PH; Hematocrit-ABG 38 % (42.0-52.0); Hemoglobin (Hb) 12.8 g/dL (14.0-18.0); O2 Tension (PaO2), arterial 104.5 mmHg (> 80.0); Potassium - ABG Lab 3.85 mmol/L (3.70-5.30); Puncture Site RRA; RapidComm Collect By CP.PH; pH, Arterial 7.326 (7.35-7.45)
[2023-04-15] MEDS ORDERED: Famotidine/PF 20 mg/2ml Vial ONE (22:14)
[2023-04-15 22:27] LABS: Bilirubin Neg (Negative); Blood, Urine Negative (Negative); Clarity Clear (Clear); Glucose, Urine (Dipstick) Normal (Negative); Ketone, Urine Negative (Negative); Leukocyte Negative (Negative); Nitrite Negative (Negative); Protein, Urine (Dipstick) Negative (Neg-Trace); Urobilinogen Normal mg/dL (Less than 2)
[2023-04-15 22:31] LABS: Bacteria/HPF None Seen HPF (None Seen); CAUTI Indications for Culture Pelvic or flank pain; RBC/HPF 0-3 HPF (0-3); Squamous Epithelial 0-3 HPF (0-3); Urine Culture Reflex No No; WBC/HPF 0-3 HPF (0-3)
== END 2023-04-15 22:54 | disposition home or self-care (01) ==
LOC: CSHERS 18:52
DX: K44.9 Diaphragmatic hernia without obstruction or gangrene (principal); R10.13 Epigastric pain; I11.0 Hypertensive heart disease with heart failure; I50.9 Heart failure, unspecified; J44.9 Chronic obstructive pulmonary disease, unspecified; F17.200 Nicotine dependence, unspecified, uncomplicated; Z79.01 Long term (current) use of anticoagulants; Z79.82 Long term (current) use of aspirin; Z79.899 Other long term (current) drug therapy
CPT/HCPCS: 36415; 36600; 71045; 74177; 80053; 81001; 82805; 83605; 83690; 83735; 83880; 84484; 85025; 85610; 85730; 93005; 96365; 96366; 96375; J2270; J2405; J3475; Q9967; S0028

== ENCOUNTER 2023-04-26 09:33 | Emergency (ER) | payer MEDICARE, OTHER ==
[2023-04-26] MEDS ORDERED: Morphine 4 MG/ML VIAL ONE ×2 (10:22→11:52)
[2023-04-26] MEDS ORDERED: Ondansetron PF 4 MG/2 ML Vial ONE (10:22)
[2023-04-26 10:35] LABS: #Basophils 0.1 10x3/uL (0.0-0.2); #Eosinphils 0.1 10x3/uL (0.0-0.5); #Monocytes 0.6 10x3/uL (0.0-1.1); #Neutrophils 4.6 10x3/uL (1.5-8.4); %Basophils 0.8 % (0.0-2.0); %Eosinophils 1.4 % (0.0-6.0); %Lymphocytes 18.5 % (18.0-47.0); %Monocytes 9.5 % (0.0-10.0); %Neutrophils 68.7 % (40.0-75.0); Hematocrit 46.8 % (38.8-50.0); Hemoglobin 15.2 g/dL (13.5-17.5); Mean Corpuscular HGB CONC 32.5 g/dL (32.0-36.0); Mean Corpuscular Hemoglobin 31.7 pg (27.0-33.0); Mean Corpuscular Volume 97.5 fl (81.2-95.1); Mean Platelet Volume 11.5 fl (7.4-10.4); Platelet Count 157 10x3/uL (150-450); RBC Distribution Width 13.3 % (11.5-14.5); White Blood Cell (WBC) Count 6.7 10x3/uL (3.5-10.5)
[2023-04-26 10:56] LABS: ALT (SGPT) 11 U/L (8-55); AST (SGOT) 35 U/L (5-34); Albumin 4.4 g/dL (3.5-5.0); Alkaline Phosphatase 92 U/L (40-110); Anion Gap 16 mmol/L (10-20); BUN (Urea Nitrogen) 27 mg/dL (8.4-25.7); Bilirubin, Total 0.5 mg/dL (0.2-1.2); Calc. Creatinine Clearance 0 mL/min (70-130); Calcium 9.5 mg/dL (7.8-10.44); Carbon Dioxide 18 mmol/L (22-29); Chloride 108 mmol/L (98-107); Estimated GFR 67; Globulin 4.4 g/dL (2.4-3.5); Glucose 172 mg/dL (70-105); Lipase 60 U/L (8-78); Potassium 4.7 mmol/L (3.5-5.1); Protein, Total 8.8 g/dL (6.0-8.3); Sodium 137 mmol/L (136-145)
[2023-04-26 12:21] LABS: Lavender RECEIVED; Red RECEIVED
== END 2023-04-26 13:10 | disposition home or self-care (01) ==
LOC: CSHERS 09:33
DX: R10.13 Epigastric pain (principal)
CPT/HCPCS: 71045; 80053; 83690; 84484; 85025; 93005; 96361; 96374; 96375; 96376; J2270; J2405

== ENCOUNTER 2023-05-13 15:24 | Emergency (ER) | payer MEDICARE ==
[2023-05-13] MEDS ORDERED: Sucralfate 1 GM/10 ML UDCUP ONE (16:21)
== END 2023-05-13 16:32 | disposition left against medical advice (07) ==
LOC: CSHERS 15:24
DX: R10.13 Epigastric pain (principal); J44.9 Chronic obstructive pulmonary disease, unspecified; I11.0 Hypertensive heart disease with heart failure; I50.9 Heart failure, unspecified; F17.200 Nicotine dependence, unspecified, uncomplicated
CPT/HCPCS: 93005

== ENCOUNTER 2023-05-31 15:17 | Emergency (ER) | payer MEDICARE | END 2023-05-31 18:00 | disposition home or self-care (01) | LOC: CSHERS 15:17 | DX: R10.13 Epigastric pain (principal); I11.0 Hypertensive heart disease with heart failure; I50.9 Heart failure, unspecified; J44.9 Chronic obstructive pulmonary disease, unspecified; F17.290 Nicotine dependence, other tobacco product, uncomplicated ==

== ENCOUNTER 2023-06-07 04:31 | Emergency (ER) | payer MEDICARE ==
[2023-06-07 05:29] LABS: #Eosinphils 0.1 10x3/uL (0.0-0.5); #Monocytes 0.7 10x3/uL (0.0-1.1); #Neutrophils 3.3 10x3/uL (1.5-8.4); %Basophils 0.8 % (0.0-2.0); %Eosinophils 2.1 % (0.0-6.0); %Lymphocytes 19.1 % (18.0-47.0); %Monocytes 13.9 % (0.0-10.0); %Neutrophils 63.3 % (40.0-75.0); Hematocrit 33.2 % (38.8-50.0); Hemoglobin 10.7 g/dL (13.5-17.5); Mean Corpuscular HGB CONC 32.2 g/dL (32.0-36.0); Mean Corpuscular Hemoglobin 31.5 pg (27.0-33.0); Mean Corpuscular Volume 97.6 fl (81.2-95.1); Mean Platelet Volume 11.1 fl (7.4-10.4); Platelet Count 116 10x3/uL (150-450); RBC Distribution Width 14.8 % (11.5-14.5); White Blood Cell (WBC) Count 5.2 10x3/uL (3.5-10.5)
[2023-06-07 05:31] LABS: ALT (SGPT) 7 U/L (8-55); AST (SGOT) 21 U/L (5-34); Albumin 3.8 g/dL (3.5-5.0); Alkaline Phosphatase 74 U/L (40-110); Anion Gap 11 mmol/L (10-20); BUN (Urea Nitrogen) 16 mg/dL (8.4-25.7); Bilirubin, Total 0.6 mg/dL (0.2-1.2); Calc. Creatinine Clearance 0 mL/min (70-130); Calcium 8.6 mg/dL (7.8-10.44); Carbon Dioxide 20 mmol/L (22-29); Chloride 112 mmol/L (98-107); Estimated GFR 76; Globulin 3.4 g/dL (2.4-3.5); Glucose 174 mg/dL (70-105); Lipase 28 U/L (8-78); Potassium 3.2 mmol/L (3.5-5.1); Protein, Total 7.2 g/dL (6.0-8.3); Sodium 140 mmol/L (136-145)
[2023-06-07 05:37] LABS: Troponin I 0.021 ng/mL (< 0.028)
[2023-06-07] MEDS ORDERED: Potassium Chloride 20 MEQ TAB ONE (06:13)
[2023-06-07] MEDS ORDERED: Mag-Al Plus 1200 MG/1200 MG/120 MG/30 ML UDCUP ONE (06:33)
[2023-06-07] MEDS ORDERED: Famotidine 20 MG TAB ONE (06:35)
[2023-06-07] MEDS ORDERED: Lidocaine 2% 6 ML (Jelly) SYR FS SCH (07:30)
== END 2023-06-07 07:20 | disposition home or self-care (01) ==
LOC: CSHERS 04:31
DX: R10.13 Epigastric pain (principal); I11.0 Hypertensive heart disease with heart failure; I50.9 Heart failure, unspecified; J44.9 Chronic obstructive pulmonary disease, unspecified; F17.200 Nicotine dependence, unspecified, uncomplicated; Z79.01 Long term (current) use of anticoagulants; Z79.899 Other long term (current) drug therapy
CPT/HCPCS: 36415; 71045; 80053; 83690; 84484; 85025; 93005

== ENCOUNTER 2023-09-16 17:34 | Emergency (ER) | payer MEDICARE ==
[2023-09-16 19:03] LABS: #Eosinphils 0.1 10x3/uL (0.0-0.5); #Monocytes 0.6 10x3/uL (0.0-1.1); %Basophils 0.5 % (0.0-2.0); %Eosinophils 0.9 % (0.0-6.0); %Lymphocytes 18.7 % (18.0-47.0); %Monocytes 10.5 % (0.0-10.0); %Neutrophils 69.1 % (40.0-75.0); Hematocrit 37.3 % (38.8-50.0); Hemoglobin 12.2 g/dL (13.5-17.5); Mean Corpuscular HGB CONC 32.7 g/dL (32.0-36.0); Mean Corpuscular Hemoglobin 30.6 pg (27.0-33.0); Mean Corpuscular Volume 93.5 fl (81.2-95.1); Platelet Count 143 10x3/uL (150-450); RBC Distribution Width 14.1 % (11.5-14.5); Red Blood Cell (RBC) Count 3.99 10x6/uL (4.32-5.72); White Blood Cell (WBC) Count 5.7 10x3/uL (3.5-10.5)
[2023-09-16 19:10] LABS: ALT (SGPT) 8 U/L (8-55); AST (SGOT) 25 U/L (5-34); Alkaline Phosphatase 81 U/L (40-110); Anion Gap 11 mmol/L (10-20); BUN (Urea Nitrogen) 17 mg/dL (8.4-25.7); Bilirubin, Total 0.9 mg/dL (0.2-1.2); Calc. Creatinine Clearance 0 mL/min (70-130); Calcium 8.9 mg/dL (7.8-10.44); Carbon Dioxide 21 mmol/L (22-29); Chloride 111 mmol/L (98-107); Estimated GFR 71; Glucose 116 mg/dL (70-105); Potassium 3.4 mmol/L (3.5-5.1); Sodium 140 mmol/L (136-145)
[2023-09-16 19:20] LABS: Bilirubin Neg (Negative); Blood, Urine Negative (Negative); Clarity Clear (Clear); Glucose, Urine (Dipstick) Normal (Negative); Ketone, Urine Negative (Negative); Leukocyte 25 (Negative); Nitrite Negative (Negative); Protein, Urine (Dipstick) 30 mg/dl (Neg-Trace); Specific Gravity, Urine 1.025 (1.005-1.030); Urobilinogen Normal mg/dL (Less than 2)
[2023-09-16 19:40] LABS: CAUTI Indications for Culture Pelvic or flank pain; RBC/HPF 0-3 HPF (0-3)
[2023-09-16 19:41] LABS: Bacteria/HPF 1+ HPF (None Seen); Mucous/LPF 1+ LPF (<2+); Squamous Epithelial 0-3 HPF (0-3)
[2023-09-16 19:42] LABS: Urine Culture Reflex No No
[2023-09-16] MEDS ORDERED: Morphine 4 MG/ML VIAL ONE (19:55)
[2023-09-16 20:16] LABS: Troponin I 0.051 ng/mL (< 0.028)
== END 2023-09-16 22:13 | disposition home or self-care (01) ==
LOC: CSHERS 17:34
DX: R10.13 Epigastric pain (principal); J44.9 Chronic obstructive pulmonary disease, unspecified; I11.0 Hypertensive heart disease with heart failure; I50.9 Heart failure, unspecified; F17.220 Nicotine dependence, chewing tobacco, uncomplicated
CPT/HCPCS: 36415; 71045; 80053; 81001; 84484; 85025; 93005; 96372; J2270

== ENCOUNTER 2024-07-11 21:12 | Emergency (ER) | payer MEDICARE, OTHER ==
[2024-07-11 22:03] LABS: ALT (SGPT) 46 U/L (8-55); AST (SGOT) 151 U/L (5-34); Albumin 3.7 g/dL (3.4-4.8); Alkaline Phosphatase 107 U/L (40-110); Anion Gap 13 mmol/L (10-20); BUN (Urea Nitrogen) 21 mg/dL (8.4-25.7); Bilirubin, Total 0.6 mg/dL (0.2-1.2); Calc. Creatinine Clearance 0 mL/min (70-130); Calcium 9.4 mg/dL (7.8-10.44); Carbon Dioxide 17 mmol/L (23-31); Chloride 111 mmol/L (98-107); Estimated GFR 70; Glucose 130 mg/dL (80-115); Lipase 26 U/L (8-78); Potassium 3.8 mmol/L (3.5-5.1); Protein, Total 7.7 g/dL (5.8-8.1); Sodium 137 mmol/L (136-145)
[2024-07-11 22:13] LABS: Bilirubin Neg (Negative); Blood, Urine 10 (Negative); Glucose, Urine (Dipstick) Normal (Negative); Ketone, Urine Negative (Negative); Leukocyte Negative (Negative); Nitrite Negative (Negative); Protein, Urine (Dipstick) 15 mg/dl (Neg-Trace); Specific Gravity, Urine 1.025 (1.005-1.030); Urobilinogen Normal mg/dL (Less than 2)
[2024-07-11 22:14] LABS: Clarity Clear (Clear)
[2024-07-11 22:23] LABS: #Basophils 0.04 10x3/uL (0.0-0.2); #Eosinophils 0.11 10x3/uL (0.0-0.5); #Monocytes 0.73 10x3/uL (0.0-1.1); #Neutrophils 3.53 10x3/uL (1.5-8.4); %Basophils 0.7 % (0.0-2.0); %Eosinophils 1.9 % (0.0-6.0); %Lymphocytes 23.6 % (18.0-47.0); %Monocytes 12.6 % (0.0-10.0); %Neutrophils 60.7 % (40.0-75.0); Hematocrit 36.4 % (38.8-50.0); Hemoglobin 11.2 g/dL (13.5-17.5); Mean Corpuscular HGB CONC 30.8 g/dL (32.0-36.0); Mean Corpuscular Hemoglobin 28.5 pg (27.0-33.0); Mean Corpuscular Volume 92.6 fL (81.2-95.1); Mean Platelet Volume 11.3 fL (7.4-10.4); Platelet Count 144 10x3/uL (150-450); RBC Distribution Width 14.4 % (11.5-14.5); Red Blood Cell (RBC) Count 3.93 10x6/uL (4.32-5.72); White Blood Cell (WBC) Count 5.8 10x3/uL (3.5-10.5)
[2024-07-11 22:25] LABS: Bacteria/HPF 1+ HPF (None Seen); CAUTI Indications for Culture Pelvic or flank pain; RBC/HPF 0-3 HPF (0-3); Squamous Epithelial 0-3 HPF (0-3); WBC/HPF 0-3 HPF (0-3)
[2024-07-11 22:26] LABS: Calcium Oxalate Crystals 2+ HPF (None Seen); Urine Culture Reflex No No
[2024-07-11] MEDS ORDERED: Dicyclomine 20 MG/2 ML VIAL ONE (23:10)
[2024-07-11] MEDS ORDERED: Dicyclomine 20 MG TAB ONE (23:11)
[2024-07-12] MEDS ORDERED: oxyCODONE 5 MG TAB ONE (00:39)
== END 2024-07-12 02:55 | disposition home or self-care (01) ==
LOC: CSHERS 21:12
DX: T18.3XXA Foreign body in small intestine, initial encounter (principal); I11.0 Hypertensive heart disease with heart failure; I50.9 Heart failure, unspecified; J44.9 Chronic obstructive pulmonary disease, unspecified; E11.9 Type 2 diabetes mellitus without complications; F17.220 Nicotine dependence, chewing tobacco, uncomplicated; Z79.01 Long term (current) use of anticoagulants; Z79.82 Long term (current) use of aspirin; Z79.899 Other long term (current) drug therapy; Z86.73 Personal history of transient ischemic attack (TIA), and cerebral infarction without residual deficits; Z93.3 Colostomy status; W44.9XXA Unspecified foreign body entering into or through a natural orifice, initial encounter
CPT/HCPCS: 36415; 74019; 74176; 80053; 81001; 83690; 85025; 93005

== ENCOUNTER 2024-07-12 17:23 | Emergency (ER) | payer OTHER | END 2024-07-12 20:03 | disposition home or self-care (01) | LOC: CSHERS 17:23 | DX: T18.3XXA Foreign body in small intestine, initial encounter (principal); I11.0 Hypertensive heart disease with heart failure; I50.9 Heart failure, unspecified; E11.9 Type 2 diabetes mellitus without complications; F17.220 Nicotine dependence, chewing tobacco, uncomplicated; J44.9 Chronic obstructive pulmonary disease, unspecified; Z79.01 Long term (current) use of anticoagulants; Z79.82 Long term (current) use of aspirin; Z79.899 Other long term (current) drug therapy; Z86.73 Personal history of transient ischemic attack (TIA), and cerebral infarction without residual deficits; Z93.3 Colostomy status; W44.9XXA Unspecified foreign body entering into or through a natural orifice, initial encounter | CPT/HCPCS: 36415; 74019; 74176; 80053; 81001; 83690; 85025; 93005; 99284 ==

== ENCOUNTER 2024-08-20 15:38 | Emergency (ER) | payer OTHER ==
[2024-08-20] MEDS ORDERED: HYDROcodone/Acetaminophen 5/325 mg Tablet ONE (17:51)
== END 2024-08-20 18:00 | disposition home or self-care (01) ==
LOC: CSHERS 15:38
DX: M54.50 Low back pain, unspecified (principal); E11.9 Type 2 diabetes mellitus without complications; I11.0 Hypertensive heart disease with heart failure; I50.9 Heart failure, unspecified; J44.9 Chronic obstructive pulmonary disease, unspecified; F17.220 Nicotine dependence, chewing tobacco, uncomplicated; Z86.73 Personal history of transient ischemic attack (TIA), and cerebral infarction without residual deficits
CPT/HCPCS: 99283

== ENCOUNTER 2024-10-27 08:55 | Emergency (ER) | payer OTHER ==
[2024-10-27] MEDS ORDERED: Acetaminophen 500 MG TAB ONE (09:24)
[2024-10-27 09:47] LABS: INR-International Normal Ratio 1.8; PTT 33.9 sec (22.0-33.0); Prothrombin Time 18.6 sec (9.5-12.1)
[2024-10-27 09:56] LABS: Troponin I 0.038 ng/mL (< 0.028)
[2024-10-27 09:57] LABS: ALT (SGPT) Less than 7 U/L (Less than 45); AST (SGOT) 24 U/L (11-34); Albumin 3.7 g/dL (3.1-4.5); Alkaline Phosphatase 82 U/L (40-110); Anion Gap 12 mmol/L (10-20); BUN (Urea Nitrogen) 17 mg/dL (8.4-25.7); Calc. Creatinine Clearance 0 mL/min (70-130); Calcium 8.8 mg/dL (7.8-10.44); Carbon Dioxide 17 mmol/L (23-31); Chloride 110 mmol/L (98-107); Estimated GFR 73; Glucose 195 mg/dL (80-115); Potassium 3.2 mmol/L (3.5-5.1); Protein, Total 7.7 g/dL (5.8-8.1); Sodium 136 mmol/L (136-145)
[2024-10-27 10:04] LABS: #Basophils Less than 0.03 10x3/uL (0.0-0.2); #Eosinophils 0.08 10x3/uL (0.0-0.5); #Monocytes 0.65 10x3/uL (0.0-1.1); #Neutrophils 3.97 10x3/uL (1.5-8.4); %Basophils 0.4 % (0.0-2.0); %Eosinophils 1.5 % (0.0-6.0); %Lymphocytes 12.1 % (18.0-47.0); %Monocytes 12.1 % (0.0-10.0); %Neutrophils 73.5 % (40.0-75.0); Hematocrit 33.6 % (38.8-50.0); Mean Corpuscular HGB CONC 29.8 g/dL (32.0-36.0); Mean Corpuscular Hemoglobin 26.2 pg (27.0-33.0); Mean Platelet Volume 11.9 fL (7.4-10.4); RBC Distribution Width 17.5 % (11.5-14.5); Red Blood Cell (RBC) Count 3.82 10x6/uL (4.32-5.72); White Blood Cell (WBC) Count 5.39 10x3/uL (3.5-10.5)
[2024-10-27 10:09] LABS: Platelet Count 127 10x3/uL (150-450)
[2024-10-27] MEDS ORDERED: Potassium Chloride 20 MEQ TAB ONE (10:22)
[2024-10-27] MEDS ORDERED: Morphine 4 MG/ML VIAL ONE (11:11)
== END 2024-10-27 15:08 | disposition short-term general hospital (02) ==
LOC: CSHERS 08:55
DX: R07.2 Precordial pain (principal); R06.02 Shortness of breath; I11.0 Hypertensive heart disease with heart failure; I50.9 Heart failure, unspecified; E11.9 Type 2 diabetes mellitus without complications; J44.9 Chronic obstructive pulmonary disease, unspecified; F17.220 Nicotine dependence, chewing tobacco, uncomplicated; Z86.73 Personal history of transient ischemic attack (TIA), and cerebral infarction without residual deficits
CPT/HCPCS: 71045; 80053; 83880; 84484; 85025; 85610; 85730; 93005; J2270; 36415; 96374

== ENCOUNTER 2024-11-05 16:38 | Emergency (ER) | payer OTHER ==
[2024-11-05] MEDS ORDERED: fentaNYL 50 mcg/mL 1 mL Vial ONE (17:36)
[2024-11-05] MEDS ORDERED: Lidocaine Viscous Sol 2% 15 ml UD Cup ONE (17:37)
[2024-11-05] MEDS ORDERED: Mag-Al 1200 mg/1200 mg/30 ML UDCUP ONE (17:37)
[2024-11-05 17:52] LABS: ALT (SGPT) Less than 7 U/L (Less than 45); AST (SGOT) 22 U/L (11-34); Albumin 3.7 g/dL (3.1-4.5); Alkaline Phosphatase 97 U/L (40-110); Anion Gap 10 mmol/L (10-20); BUN (Urea Nitrogen) 12 mg/dL (8.4-25.7); Bilirubin, Total 0.8 mg/dL (0.3-1.2); Calc. Creatinine Clearance 0 mL/min (70-130); Calcium 8.7 mg/dL (7.8-10.44); Carbon Dioxide 19 mmol/L (23-31); Chloride 113 mmol/L (98-107); Estimated GFR 73; Globulin 3.7 g/dL (2.4-3.5); Glucose 118 mg/dL (80-115); Lipase 17 U/L (8-78); Potassium 3.6 mmol/L (3.5-5.1); Protein, Total 7.4 g/dL (5.8-8.1); Sodium 138 mmol/L (136-145)
[2024-11-05 17:56] LABS: Troponin I 0.025 ng/mL (< 0.028)
[2024-11-05 18:00] LABS: Platelet Count 134 10x3/uL (150-450)
[2024-11-05 18:01] LABS: #Basophils 0.03 10x3/uL (0.0-0.2); #Eosinophils 0.11 10x3/uL (0.0-0.5); #Monocytes 0.48 10x3/uL (0.0-1.1); #Neutrophils 3.23 10x3/uL (1.5-8.4); %Basophils 0.6 % (0.0-2.0); %Eosinophils 2.4 % (0.0-6.0); %Lymphocytes 17.3 % (18.0-47.0); %Monocytes 10.3 % (0.0-10.0); Hematocrit 34.4 % (38.8-50.0); Mean Corpuscular HGB CONC 29.1 g/dL (32.0-36.0); Mean Corpuscular Hemoglobin 26.2 pg (27.0-33.0); Mean Corpuscular Volume 90.1 fL (81.2-95.1); RBC Distribution Width 17.1 % (11.5-14.5); Red Blood Cell (RBC) Count 3.82 10x6/uL (4.32-5.72); White Blood Cell (WBC) Count 4.68 10x3/uL (3.5-10.5)
== END 2024-11-05 18:23 | disposition home or self-care (01) ==
LOC: CSHERS 16:38
DX: K20.90 Esophagitis, unspecified without bleeding (principal); I11.0 Hypertensive heart disease with heart failure; I50.9 Heart failure, unspecified; E11.9 Type 2 diabetes mellitus without complications; J44.9 Chronic obstructive pulmonary disease, unspecified; G45.9 Transient cerebral ischemic attack, unspecified; E87.6 Hypokalemia; F17.220 Nicotine dependence, chewing tobacco, uncomplicated; Z79.82 Long term (current) use of aspirin; Z79.899 Other long term (current) drug therapy; Z79.51 Long term (current) use of inhaled steroids
CPT/HCPCS: 80053; 83690; 84484; 85025; 93005; J3010; 36415; 93010; 96372; 99284

== ENCOUNTER 2025-05-15 00:07 | Emergency (ER) | payer OTHER ==
[2025-05-15 01:00] LABS: #Basophils 0.10 10x3/uL (0.0-0.2); #Eosinophils 1.24 10x3/uL (0.0-0.5); #Monocytes 1.14 10x3/uL (0.0-1.1); #Neutrophils 5.32 10x3/uL (1.5-8.4); %Basophils 1.1 % (0.0-2.0); %Eosinophils 14.1 % (0.0-6.0); %Lymphocytes 10.6 % (18.0-47.0); %Monocytes 13.0 % (0.0-10.0); %Neutrophils 60.5 % (40.0-75.0); Hematocrit 23.3 % (38.8-50.0); Hemoglobin 6.9 g/dL (13.5-17.5); Mean Corpuscular Hemoglobin 24.6 pg (27.0-33.0); Mean Corpuscular Volume 82.9 fL (81.2-95.1); Platelet Count 282 10x3/uL (150-450); Red Blood Cell (RBC) Count 2.81 10x6/uL (4.32-5.72); White Blood Cell (WBC) Count 8.79 10x3/uL (3.5-10.5)
[2025-05-15 01:23] LABS: INR-International Normal Ratio 2.3; Prothrombin Time 22.8 sec (9.5-12.1)
[2025-05-15 01:28] LABS: ALT (SGPT) 8 U/L (Less than 45); AST (SGOT) 32 U/L (11-34); Albumin 3.1 g/dL (3.1-4.5); Alkaline Phosphatase 190 U/L (40-110); Anion Gap 15 mmol/L (10-20); BUN (Urea Nitrogen) 19 mg/dL (8.4-25.7); Bilirubin, Total 0.9 mg/dL (0.3-1.2); Calc. Creatinine Clearance 0 mL/min (70-130); Calcium 8.2 mg/dL (7.8-10.44); Carbon Dioxide 18 mmol/L (23-31); Chloride 102 mmol/L (98-107); Globulin 4.4 g/dL (2.4-3.5); Glucose 111 mg/dL (80-115); Lipase 18 U/L (8-78); Potassium 3.2 mmol/L (3.5-5.1); Sodium 132 mmol/L (136-145)
[2025-05-15 01:34] LABS: Troponin I 0.027 ng/mL (< 0.028)
[2025-05-15] MEDS ORDERED: Ondansetron PF 4 MG/2 ML Vial ONE (01:49)
[2025-05-15 04:13] LABS: Troponin I 0.023 ng/mL (< 0.028)
== END 2025-05-15 04:31 | disposition home or self-care (01) ==
LOC: CSHERS 00:07
DX: R07.89 Other chest pain (principal); J44.9 Chronic obstructive pulmonary disease, unspecified; Z86.73 Personal history of transient ischemic attack (TIA), and cerebral infarction without residual deficits; I11.0 Hypertensive heart disease with heart failure; I50.9 Heart failure, unspecified; F17.220 Nicotine dependence, chewing tobacco, uncomplicated; Z79.82 Long term (current) use of aspirin; Z79.899 Other long term (current) drug therapy; Z79.51 Long term (current) use of inhaled steroids
CPT/HCPCS: 71045; 80053; 83690; 83880; 84484 ×2; 85025; 85610; 93005; J2270; J2405; 96374; 96375

== ENCOUNTER 2025-06-03 02:09 | Emergency (ER) | payer OTHER ==
[2025-06-03 02:53] LABS: #Basophils 0.04 10x3/uL (0.0-0.2); #Eosinophils 0.16 10x3/uL (0.0-0.5); #Monocytes 0.78 10x3/uL (0.0-1.1); #Neutrophils 3.38 10x3/uL (1.5-8.4); %Basophils 0.8 % (0.0-2.0); %Eosinophils 3.0 % (0.0-6.0); %Lymphocytes 16.8 % (18.0-47.0); %Monocytes 14.7 % (0.0-10.0); %Neutrophils 63.6 % (40.0-75.0); Hematocrit 28.4 % (38.8-50.0); Hemoglobin 8.2 g/dL (13.5-17.5); Mean Corpuscular Hemoglobin 25.0 pg (27.0-33.0); Mean Corpuscular Volume 86.6 fL (81.2-95.1); Platelet Count 156 10x3/uL (150-450); Red Blood Cell (RBC) Count 3.28 10x6/uL (4.32-5.72); White Blood Cell (WBC) Count 5.31 10x3/uL (3.5-10.5)
[2025-06-03] MEDS ORDERED: Mag-Al 1200 mg/1200 mg/30 ML UDCUP ONE (02:53)
[2025-06-03] MEDS ORDERED: Lidocaine Viscous Sol 2% 15 ml UD Cup ONE (02:53)
[2025-06-03] MEDS ORDERED: HYDROmorphone 0.5 MG/0.5 ML SYRINGE ONE (02:53)
[2025-06-03 03:03] LABS: ALT (SGPT) 13 U/L (Less than 45); AST (SGOT) 52 U/L (11-34); Albumin 3.3 g/dL (3.1-4.5); Alkaline Phosphatase 140 U/L (40-110); Anion Gap 17 mmol/L (10-20); BUN (Urea Nitrogen) 25 mg/dL (8.4-25.7); Bilirubin, Total 1.3 mg/dL (0.3-1.2); Calc. Creatinine Clearance 0 mL/min (70-130); Calcium 8.7 mg/dL (7.8-10.44); Carbon Dioxide 17 mmol/L (23-31); Chloride 107 mmol/L (98-107); Globulin 4.4 g/dL (2.4-3.5); Glucose 119 mg/dL (80-115); Potassium 3.6 mmol/L (3.5-5.1); Sodium 137 mmol/L (136-145)
[2025-06-03 03:09] LABS: Troponin I 0.033 ng/mL (< 0.028)
[2025-06-03 07:22] LABS: Troponin I 0.034 ng/mL (< 0.028)
== END 2025-06-03 08:36 | disposition home or self-care (01) ==
LOC: CSHERS 02:09
DX: R07.9 Chest pain, unspecified (principal); I11.0 Hypertensive heart disease with heart failure; I50.9 Heart failure, unspecified; E11.9 Type 2 diabetes mellitus without complications; J44.9 Chronic obstructive pulmonary disease, unspecified; F17.220 Nicotine dependence, chewing tobacco, uncomplicated; Z86.73 Personal history of transient ischemic attack (TIA), and cerebral infarction without residual deficits; Z79.899 Other long term (current) drug therapy; Z79.82 Long term (current) use of aspirin; Z79.51 Long term (current) use of inhaled steroids
CPT/HCPCS: 71045; 80053; 84484 ×2; 85025; 93005; 94760; J1171; 96374

== ENCOUNTER 2025-08-11 17:23 | Emergency (ER) | payer OTHER ==
[~2025-08-11 17:23] MED LIST changes: -Iopamidol 300 61% 100 ML VIAL FS ONE; +Iopamidol 370 76% 100 ML VIAL ONE
[2025-08-11] MEDS ORDERED: HYDROmorphone 0.5 MG/0.5 ML SYRINGE ONE ×2 (19:27→21:38)
[2025-08-11 19:38] LABS: Hematocrit 31.3 % (38.8-50.0); Hemoglobin 9.2 g/dL (13.5-17.5); Mean Corpuscular Hemoglobin 26.9 pg (27.0-33.0); Mean Corpuscular Volume 91.5 fL (81.2-95.1); Platelet Count 151 10x3/uL (150-450); Red Blood Cell (RBC) Count 3.42 10x6/uL (4.32-5.72); White Blood Cell (WBC) Count 5.82 10x3/uL (3.5-10.5)
[2025-08-11 20:00] LABS: ALT (SGPT) Less than 7 U/L (Less than 45); AST (SGOT) 33 U/L (11-34); Albumin 3.7 g/dL (3.1-4.5); Alkaline Phosphatase 117 U/L (40-110); Anion Gap 16 mmol/L (10-20); BUN (Urea Nitrogen) 37 mg/dL (8.4-25.7); Bilirubin, Total 1.7 mg/dL (0.3-1.2); Calc. Creatinine Clearance 0 mL/min (70-130); Calcium 8.3 mg/dL (7.8-10.44); Carbon Dioxide 10 mmol/L (23-31); Chloride 106 mmol/L (98-107); Globulin 4.3 g/dL (2.4-3.5); Glucose 137 mg/dL (80-115); Lipase 25 U/L (8-78); Magnesium 1.7 mg/dL (1.6-2.6); Potassium 4.1 mmol/L (3.5-5.1); Sodium 128 mmol/L (136-145)
[2025-08-11 20:02] LABS: #Basophils 0.05 10x3/uL (0.0-0.2); #Eosinophils 0.04 10x3/uL (0.0-0.5); #Monocytes 1.20 10x3/uL (0.0-1.1); #Neutrophils 3.94 10x3/uL (1.5-8.4); %Basophils 0.9 % (0.0-2.0); %Eosinophils 0.7 % (0.0-6.0); %Lymphocytes 9.1 % (18.0-47.0); %Monocytes 20.6 % (0.0-10.0); %Neutrophils 67.7 % (40.0-75.0); Anisocytosis MODERATE=16-30 cells (100X) (0-5/hpf); Burr Cells SLIGHT = 2-5 cells (100X) (0-1/hpf); MDiff Complete? YES; Platelet Adequacy Comment Appears Adequate; Polychromasia SLIGHT = 2-3 cells (100X) (0-2/hpf); Target Cells SLIGHT = 2-5 cells (100X) (0-1/hpf)
[2025-08-11 20:40] LABS: Troponin I 0.033 ng/mL (< 0.028)
[2025-08-11] MEDS ORDERED: Enoxaparin 100 MG (1 mL) SYRINGE ONE (21:37)
[2025-08-11] MEDS ORDERED: Cefepime 2 GM VIAL ONE (21:38)
== END 2025-08-12 00:16 | disposition short-term general hospital (02) ==
LOC: CSHERS 17:23
DX: I26.99 Other pulmonary embolism without acute cor pulmonale (principal); I11.0 Hypertensive heart disease with heart failure; I50.9 Heart failure, unspecified; J18.9 Pneumonia, unspecified organism; E11.9 Type 2 diabetes mellitus without complications; F17.220 Nicotine dependence, chewing tobacco, uncomplicated; Z86.73 Personal history of transient ischemic attack (TIA), and cerebral infarction without residual deficits; Z79.82 Long term (current) use of aspirin; Z79.899 Other long term (current) drug therapy
CPT/HCPCS: 71275; 74177; 80053; 83605; 83690; 83735; 83880; 84484; 85025; 87040; 93005; J0692; J1171; J1650; J3373; Q9967; 36415; 96372; 96374; 96375; 96376